=== PATIENT | female | born 1955 | race Caucasian/White ===

== ENCOUNTER → 2021-11-21 | Outpatient (CLI) | payer BC ==
[~2021-11-21] MED LIST: BAYER CHEWABLE81 MG PO; DESYREL 50 MG T50 MG PO; GLIPIZIDE10 MG PO; GLUCOTROL 10 MG10 MG PO; HUMALOG MI100 UNIT/2 SQ; LIPITOR TAB 2020 MG PO; LOPRESSOR 25 MG25 MG PO; METFORMIN HCL500 MG PO; MIRALAX 119 GR119 GM PO; NAPROSYN PO; NORCO 5-325 TA1 EACH PO; PRINIVIL20 MG PO; TOUJEO MAX300 UNIT/1 SQ; TRULICITY1.5 MG/0.5 SQ; ULTRAM50 MG PO; ZYVOX600 MG PO
== END ==
LOC: ECHO 08:59
DX: R01.1 Cardiac murmur, unspecified (principal); I34.0 Nonrheumatic mitral (valve) insufficiency
CPT/HCPCS: ECHO; 93306

== ENCOUNTER → 2021-11-28 | Outpatient (CLI) | payer BC | LOC: KOH-I 08:35 | DX: R10.9 Unspecified abdominal pain (principal) | CPT/HCPCS: 74018 ==